=== PATIENT | male | born 1970 | race Caucasian/White ===

== ENCOUNTER 2021-01-29 15:38 | Emergency (ER) | payer OTHER ==
[2021-01-29 17:51] LABS: BASOPHIL 0 % (0-2); EOSINOPHIL 0 % (0-5); HCT 48.4 % (42.0-52.0); LYMPHOCYTE 14.8 % (15-48); MCH 26.6 pg (25.0-31.0); MCHC 33.1 g/dL (32.0-36.0); MCV 80.5 fL (78.0-100.0); MONOCYTE 6.5 % (0-12); MPV 10.3 fL (6.0-9.5); NEUTROPHIL 78.3 % (41-80); NRBC 0; PLT 139 K/uL (150-400); RBC 6.01 M/uL (4.70-6.00); RDW 12.9 % (11.5-14.0); WBC 4.9 K/uL (4.0-10.5)
[2021-01-29 18:09] LABS: BUN/CREAT RATIO (CALC) 12.9 RATIO; CREATININE 0.93 mg/dL (0.67-1.17); POTASSIUM 4.5 mmol/L (3.5-5.1)
[2021-01-29 18:38] LABS: INFLUENZA A NAA NEGATIVE (NEGATIVE)
[2021-01-29 18:40] LABS: CORONAVIRUS 2019 SARS-COV-2 POSITIVE (NEGATIVE)
[2021-01-29] MEDS ORDERED: VENTOLIN HFA IN18 GM INH (20:47)
== END 2021-01-29 20:56 | disposition home or self-care (01) ==
LOC: FER 15:38
PROVIDERS: Nurse Practitioner Family
DX: U07.1 COVID-19 (principal); I10 Essential (primary) hypertension; E11.9 Type 2 diabetes mellitus without complications; Z23 Encounter for immunization
CPT/HCPCS: 36415; 71045; 80048; 85025; J7030; M0243; Q0244; U0002